=== PATIENT | male | born 1995 | race Two or more races ===

== ENCOUNTER 2018-10-07 17:39 | Emergency (ER) | payer SELFPAY ==
[2018-10-07] MEDS ORDERED: DOXYCYCLINE HYCLATE 100 MG TABLET PO ONE (20:13)
[2018-10-07] MEDS ORDERED: VALACYCLOVIR HCL 500 MG TABLET PO ONE (20:13)
--- NOTE | 2018-10-07 20:19 | ER Document Report ---
ED Skin Rash/Insect Bite/Abscs - General Chief Complaint: Rash Stated Complaint: RASH,ITCHING Time Seen by Provider: 10/07/18 18:53 Mode of Arrival: Ambulatory Information source: Patient Notes: 23-year-old male presents to ED for complaint of itching and burning to the groin and buttocks. He states he has had these symptoms for about 4 days. He states he has not used any new detergent, soap, or any other products in this area. He states he has been sexually active with a person recently but they did not have any rash symptoms like this. He states he lives with roommates and none of them have symptoms like this. He does not have a primary care doctor. - HPI Patient complains to provider of: Skin rash/lesion Onset: Other Onset/Duration: Gradual - 4 days Quality of pain: Burning - Itching Severity: Moderate Pain Level: 4 Skin Character: Macules, Papules Quality of rash: Itchy, Burning Identify cause: No Exacerbated by: Sitting, Walking Relieved by: Denies Similar symptoms previously: No Recently seen / treated by doctor: No Past Medical History - General Information source: Patient - Social History Smoking Status: Current Every Day Smoker Cigarette use (# per day): Yes - 6 cig a day Smoking Education Provided: Yes - 4 min Frequency of alcohol use: Heavy - 4 beer a day Drug Abuse: Marijuana Occupation: [employer] Lives with: Friend Family History: Reviewed & Not Pertinent Patient has suicidal ideation: No Patient has homicidal ideation: No - Past Medical History Cardiac Medical History: Reports: None Pulmonary Medical History: Reports: None EENT Medical History: Reports: None Neurological Medical History: Reports: None Endocrine Medical History: Reports: None Renal/ Medical History: Reports: None Malignancy Medical History: Reports None GI Medical History: Reports: None Musculoskeletal Medical History: Reports None Skin Medical History: Reports None Psychiatric Medical History: Reports: None Traumatic Medical History: Reports: None Infectious Medical History: Reports: None Surgical Hx: Negative Past Surgical History: Reports: None Review of Systems - Review of Systems Constitutional: No symptoms reported EENT: No symptoms reported Cardiovascular: No symptoms reported Respiratory: No symptoms reported Gastrointestinal: No symptoms reported Genitourinary: No symptoms reported Male Genitourinary: No symptoms reported Musculoskeletal: No symptoms reported Skin: Rash Hematologic/Lymphatic: No symptoms reported Neurological/Psychological: No symptoms reported -: Yes All other systems reviewed and negative Physical Exam - Vital signs Vitals: Temp Pulse Resp BP Pulse Ox 98.3 F 74 18 113/52 L 97 10/07/18 18:03 10/07/18 18:03 10/07/18 18:03 10/07/18 18:03 10/07/18 18:03 Interpretation: Normal - General General appearance: Appears well, Alert - HEENT Head: Normocephalic, Atraumatic Eyes: Normal Pupils: PERRL - Respiratory Respiratory status: No respiratory distress Chest status: Nontender Breath sounds: Normal Chest palpation: Normal - Cardiovascular Rhythm: Regular Heart sounds: Normal auscultation Murmur: No - Abdominal Inspection: Normal Distension: No distension Bowel sounds: Normal Tenderness: Nontender Organomegaly: No organomegaly - Genitourinary Tenderness: Lesions - macule papules, Other - Of the rash has been scratched multiple times and is unable to tell if they were vesicles at one time - Back Back: Normal, Nontender - Extremities General upper extremity: Normal inspection, Nontender, Normal color, Normal ROM, Normal temperature General lower extremity: Normal inspection, Nontender, Normal color, Normal ROM, Normal temperature, Normal weight bearing. No: Cirilo's sign - Neurological Neuro grossly intact: Yes Cognition: Normal Orientation: AAOx4 Norphlet Coma Scale Eye Opening: Spontaneous Boris Coma Scale Verbal: Oriented Boris Coma Scale Motor: Obeys Commands Norphlet Coma Scale Total: 15 Speech: Normal Motor strength normal: LUE, RUE, LLE, RLE Sensory: Normal - Psychological Associated symptoms: Normal affect, Normal mood - Skin Skin Temperature: Warm Skin Moisture: Dry Skin Color: Normal Skin irregularity: Rash Location of irregularity: Other - Groin and buttocks Character of irregularity: Maculopapular - Unable to tell if they were vesicles at one time as they have been scratched multiple times, Erythematous Irregularity with: Tenderness Course - Re-evaluation Re-evalutation: 10/07/18 20:[address] Chanel. He stated to just treat the patient with Valtrex and doxycycline and have him follow-up with her primary care doctor. Patient was written prescription for doxycycline and Valtrex. He was given instructions to use sunscreen at all times when outside while taking the doxycycline. He was also instructed on soap and water cleaning and ibuprofen for discomfort. She was given a list of local primary doctors and instructed to find one to follow-up with. - Vital Signs Vital signs: Temp Pulse Resp BP Pulse Ox 97.8 F 60 16 119/70 96 10/07/18 20:49 10/07/18 20:49 10/07/18 20:49 10/07/18 20:49 10/07/18 20:49 Discharge - Discharge Clinical Impression: Rash and nonspecific skin eruption Condition: Stable Disposition: HOME, SELF-CARE Instructions: Doxycycline ([facility]), Family Physicians / Practices, Folliculitis ([facility]), Genital Herpes ([facility]) Additional Instructions: You have a rash to your groin and buttocks area. There are 2 common causes of rash in this area that is herpes and folliculitis. Clean area well with soap and water Gently wash the wound daily using a mild soap (like Ivory, Phisoderm, Neutrogena). Use warm water, rubbing gently until all debris, ooze, and crusting have been washed from the wound. Allow to dry briefly (about 10 minutes) after cleaning. Repeat this cleansing at least three times a day for the first two days and then once or twice a day. FOLLOW-UP CARE: If you have been referred to a physician for follow-up care, call the physicians office for an appointment as you were instructed or within the next two days. If you experience worsening or a significant change in your symptoms, notify the physician immediately or return to the Emergency Department at any time for re-evaluation. Prescriptions: Doxycycline Hyclate [Vibramycin] 100 mg PO BID #20 capsule Valacyclovir HCl [Valtrex] 1,000 mg PO BID #20 tablet Forms: Smoking Cessation Education Print Language: Cymro
[2018-10-07] MEDS ORDERED: IBUPROFEN 600 MG TABLET PO ONE (20:28)
[2018-10-07 20:50] VITALS: BP 119/70
== END 2018-10-07 20:50 | disposition home or self-care (01) ==
LOC: ER 17:39
DX: R21 Rash and other nonspecific skin eruption (principal); L29.9 Pruritus, unspecified; F17.210 Nicotine dependence, cigarettes, uncomplicated
CPT/HCPCS: 99282; 99406